=== PATIENT | male | born 1955 | race Caucasian/White ===

== ENCOUNTER 2018-06-15 17:15 | Observation (INO) | payer OTHER ==
--- OUTSIDE RECORDS SUMMARY | 2018-06-15 17:18 | XMS REPORT ---
:1955 [facility] [address] [place] [address] Care Team Providers Name Role Phone LETICIA FRANCO Unavailable Unavailable Payers Payer Name Policy Type Policy Number Effective Date Expiration Date Problems This patient has no known problems. Allergies, Adverse Reactions, Alerts Allergy Allergy Status Severity Reaction(s) Onset Inactive Treating Comments Name Type Date Date Clinician kodi Quinn NM 2016-04 00:00:0 0 Medications This patient has no known medications. Results Test Description Test Time Test Comments Text Results Atomic Results Result Comments - XR SPINE 1 V SPEC LEVEL 2018-05-21 11:56:00 Patient Name: NESTOR MAKI Unit No: [id number] EXAMS: CPT CODE: [id number] XR SPINE 1 V SPEC LEVEL 24344 2 LATERAL INTRAOPERATIVE VIEWS OF THE LUMBAR SPINE Film 1: Markers overlie the soft tissues posterior to T12-L1. Film 2: Probe was overlie the posterior elements at the T12-L1 level. at 1156 Reported and signed by: Efrain Calderón MD CC: Milton Cagle M.D. Technologist: Radames Patrick,RT(R). Transcribed D/ (5787) [id number] [facility] NAME: NESTOR MAKI [address] [place] [address] PHYS: Carlos A Rosas MD : 1955 AGE: 62 SEX: M [place], [place] [address] LOC: Y.320 A PHONE #: [phone] EXAM DATE: 05/20/2018 STATUS: REG [facility] [place] FAX #: [phone] RAD #: D/C DT PAGE 1 Signed Report Patient Name: NESTOR MAKI Unit No: [id number] EXAMS: CPT CODE: [id number] XR SPINE 1 V SPEC LEVEL 28502 <Continued> Orig Print D/T: S: 05/21/2018 (3009) [facility] NAME: NESTOR MAKI [address] [place] [address] PHYS: Carlos A Rosas MD : 1955 AGE: 62 SEX: M [place], [place] [address] LOC: Y.320 A PHONE #: [phone] EXAM DATE: 05/20/2018 STATUS: REG [facility] [place] FAX #: [phone] RAD #: D/C DT PAGE 2 Signed Report - XR SPINE 1 V SPEC LEVEL 2018-05-21 11:56:00 Patient Name: NESTOR MAKI Unit No: [id number] EXAMS: CPT CODE: [id number] XR SPINE 1 V SPEC LEVEL 63646 2 LATERAL INTRAOPERATIVE VIEWS OF THE LUMBAR SPINE Film 1: Markers overlie the soft tissues posterior to T12-L1. Film 2: Probe was overlie the posterior elements at the T12-L1 level. at 1156 Reported and signed by: Efrain Calderón MD CC: Milton Cagle M.D. Technologist: JORDON OROPEZA RT(R) Transcribed D/ (6402) DanielGVG [facility] NAME: NESTOR MAKI [address] [place] [address] PHYS: Carlos A Rosas MD : 1955 AGE: 62 SEX: M [place], [place] [address] LOC: Y.320 A PHONE #: [phone] EXAM DATE: 05/20/2018 STATUS: REG [facility] [place] FAX #: [phone] RAD #: D/C DT PAGE 1 Signed Report Patient Name: NESTOR MAKI Unit No: [id number] EXAMS: CPT CODE: [id number] XR SPINE 1 V SPEC LEVEL 15885 <Continued> Orig Print D/T: S: 05/21/2018 (1159) [facility] NAME: NESTOR MAKI [address] [facility] PHYS: Carlos A Rosas MD : 1955 AGE: 62 SEX: M [place], [place] [address] LOC: Y.320 A PHONE #: [phone] EXAM DATE: 05/20/2018 STATUS: REG [facility] [place] FAX #: [phone] RAD #: D/C DT PAGE 2 Signed Report BASIC METABOLIC PANEL 2018-05-21 06:52:00 Test Item Value Reference Range Comments SODIUM (test code=NA) 138 mmol/L 136-145 POTASSIUM (test code=K) 4.9 mmol/L 3.5-5.1 CHLORIDE (test code=CL) 102.0 mmol/L 98-107 CARBON DIOXIDE (test code=CO2) 26.3 mmol/L 21-32 GLUCOSE (test code=GLU) 160 mg/dL 70-110 BLOOD UREA NITROGEN (test 12 mg/dL 7-18 code=BUN) GLOMERULAR FILTRATION RATE (test 67.3 >60 Unit of measure: mL/min/1.73 code=GFR) q7Vbuzgrlto Range:Healthy Adults >90 mL/min/1.73 m2 For Chronic Kidney Disease: Stage II Mild Decrease in GFR 60-90 Stage III Moderate Decrease in GFR 30-59 Stage IV Severe Decrease in GFR 15-29 Stage V Kidney Failure <15 CREATININE (test code=CREAT) 1.11 mg/dL 0.55-1.30 CALCIUM (test code=CA) 8.7 mg/dL 8.2-10.1 URINALYSIS [id number] 17:54:00 Test Item Value Reference Range Comments UA COLOR (test code=COLU) YELLOW YELLOW UA APPEARANCE (test code=APPU) CLEAR CLEAR UA GLUCOSE DIPSTICK (test code=DGLUU) NEGATIVE NEGATIVE UA BILIRUBIN DIPSTICK (test code=BILU) NEG NEGATIVE UA KETONE DIPSTICK (test code=KETU) NEG mg/dL NEGATIVE UA SPECIFIC GRAVITY (test code=SGU) 1.010 1.003-1.035 UA BLOOD DIPSTICK (test code=SRIKANTH) NEG NEGATIVE UA PH DIPSTICK (test code=KESHAWN) 7.0 >6.5 UA PROTEIN DIPSTICK (test code=PROU) NEG mg/dL NEG UA UROBILINIOGEN DIPSTICK (test code=URO) 0.2 mg/dL NORM UA NITRITE DIPSTICK (test code=KERON) NEG NEG UA LEUKOCYTE ESTERASE DIPSTICK (test code=LEUU) NEG NEGATIVE UA WBC (test code=WBCU) 0-2 /HPF 0-2 UA RBC (test code=RBCU) 0-2 /HPF 0-2 UA EPITHELIAL CELLS (test code=EPIU) RARE /HPF 0-2 UA BACTERIA (test code=BACU) FEW /HPF NONE BASIC METABOLIC [id number] 15:08:00 Test Item Value Reference Range Comments SODIUM (test code=NA) 135 mmol/L 136-145 POTASSIUM (test code=K) 4.7 mmol/L 3.5-5.1 CHLORIDE (test code=CL) 97.0 mmol/L 98-107 CARBON DIOXIDE (test code=CO2) 25.8 mmol/L 21-32 GLUCOSE (test code=GLU) 144 mg/dL 70-110 BLOOD UREA NITROGEN (test 18 mg/dL 7-18 code=BUN) GLOMERULAR FILTRATION RATE 60.4 >60 Unit of measure: (test code=GFR) mL/min/1.73 q4Wicxhgbxt Range:Healthy Adults >90 mL/min/1.73 m2 For Chronic Kidney Disease: Stage II Mild Decrease in GFR 60-90 Stage III Moderate Decrease in GFR 30-59 Stage IV Severe Decrease in GFR 15-29 Stage V Kidney Failure <15 CREATININE (test code=CREAT) 1.22 mg/dL 0.55-1.30 CALCIUM (test code=CA) 9.3 mg/dL 8.2-10.1 CBC W/AUTO [id number] 12:20:00 Test Item Value Reference Range Comments WHITE BLOOD CELL (test code=WBC) 9.4 K/mm3 5.7-10.5 RED BLOOD CELL (test code=RBC) 5.33 M/mm3 4.2-5.4 HEMOGLOBIN (test code=HGB) 17.3 g/dL 12-16 HEMATOCRIT (test code=HCT) 50.0 % 37-47 MEAN CELL VOLUME (test code=MCV) 94 fL 80-98 MEAN CELL HGB (test code=MCH) 32.5 pg 27-34 MEAN CELL HGB CONCENTRATION (test code=MCHC) 34.6 g/dL 30.8-34.1 RED CELL DISTRIBUTION WIDTH (test code=RDW) 13.7 % 11-16 PLT (test code=PLT) 249 K/mm3 130-400 MEAN PLATELET VOLUME (test code=MPV) 11.1 fL 8.9-12.1 NEUTROPHIL % (test code=NT%) 63.7 % 45-70 LYMPHOCYTE % (test code=LY%) 23.4 % 20-40 MONOCYTE % (test code=MO%) 8.9 % 3-10 EOSINOPHIL % (test code=EO%) 2.1 % 1-5 BASOPHIL % (test code=BA%) 0.4 % 0.0-1.1 NEUTROPHIL # (test code=NT#) 6.00 K/mm3 2.00-7.50 LYMPHOCYTE # (test code=LY#) 2.20 K/mm3 1.50-4.00 MONOCYTE # (test code=MO#) 0.84 K/mm3 0.2-0.8 EOSINOPHIL # (test code=EO#) 0.20 K/mm3 0.04-0.4 BASOPHIL # (test code=BA#) 0.04 K/mm3 0.02-0.10 MANUAL DIFF REQUIRED (test code=MDIFF) NO MANUAL DIFF NUCLEATED RED BLOOD CELL (test code=NRBC) 0 % 0-0 - XR FLUORO FOR SPINE [id number] 12:26:00 Patient Name: NESTOR MAKI Unit No: [id number] EXAMS: CPT CODE: [id number] XR FLUORO FOR SPINE INJ 66767 LUMBAR TRANSFORAMINAL INJECTION REFERRING PHYSICIAN:Dr. Shalom Cagle M.D. PREOPERATIVE DIAGNOSIS: Degenerative Lumbar Disc Disease. POSTOPERATIVE DIAGNOSIS: Lumbar radiculopathy PROCEDURES PERFORMED 1. Fluoroscopically guided needle localization of the bilateral L4, bilateral L5 spinal nerve/nerves with transforaminal epidural steroid injection/injections. 2. Transforaminal epidurogram/epidurograms at bilateral L4, bilateral L5. FINDINGS: Poor filling all. Concordant provocation left L4 hip. Pain relief-100%. ANTIBIOTIC: CefazolinESTIMATED BLOOD LOSS : Minimal ANESTHESIA: (TIVA )Total intravenous anesthetic ( patientintolerant to sedatives and hypnotics) COMPLICATIONS : None DETAILSOF PROCEDURE: After obtaining stable vital signs, informed consent and IV access, with no known contraindications to proceeding, the patient was taken to the fluoroscopy suite and placed marcelino prone position with all extremities padded and appropriate monitors placed. A sterile prep and drape was performed over the lumbosacral spine. Using fluoroscopic visualization at each level the insertion site was marked for a paravertebral approach to the foramen. Using standard technique, a 25 gauge needle was advanced to the base of the pedicle. In AP view, final positioning was obtained outside the 6 on the clock position on the pedicle. Then, 1ml of Isovue-300 contrast was injected to produce the epidurograms. No paresthesias were elicited with needle insertion or injection and there were no signs of intravascular or intrathecal uptake. Then, with 1 ml of 4% lidocaine and 10 mg of triamcinolone was injected incrementally with frequent negative aspirations. There were no signs of intravascular or intrathecal uptake. Each subsequent level was done using the same technique and medications. The patient's vital signs remained stable. The patient was taken to the PACU in good condition. at 1226 Reportedand signed by: Justino Linares M.D. [facility] NAME: NESTOR MAKI [address] [facility] PHYS: DOCUD - Justino Linares MD [place], [place] [address] : 1955 AGE : 62 SEX: M LOC: MarvaRUDDY PHONE #: [phone] EXAM DATE: 05/03/2018 STATUS: REG [facility] [place] FAX #: [phone] RAD #: D/C DT PAGE 1 Signed Report (CONTINUED) Patient Name: NESTOR MAKI Unit No: [id number] EXAMS: CPT CODE: [id number] XR FLUORO FOR SPINE INJ 07195 <Continued> CC: Technologist: Gerri Tai(R) Transcribed D/ (1226) DanielUVD [facility] NAME: NESTOR MAKI [address] [facility] PHYS: Justino Heath MD [place] [address] : 1955 AGE: 62 SEX: M LOC: [place] PHONE #: [phone] EXAM DATE: 05/03/2018 STATUS: REG [facility] [place] FAX #: [phone] RAD #: D/C DT PAGE 2 Signed Report Patient Name: NESTOR MAKIit No: [id number] EXAMS: CPT CODE: [id number] XR FLUORO FOR SPINE INJ 43726 <Continued> Orig Print D/T: S: 05/03/2018 (1230) [facility] NAME: NESTOR MAKI [address] [facility] PHYS: Justino Heath MD [place] [address] : 1955 AGE:62 SEX: M LOC: [place] PHONE #: [phone] EXAM DATE: 05/03/2018 STATUS: REG [facility] [place] FAX #: [phone] RAD #: D/C DT PAGE 3 Signed ReportCHEST 2 VIEWS [place] [address] Patient Name: NESTOR MAKI MR #: [id number] : 1955 Age/Sex: 61/M Req #: [id number] Adm Physician: Ordered by: LETICIA FRANCO MD Report #: [id number] Location: [facility] Room/Bed: Procedure: [id number] DX/ CHEST 2 VIEWS Exam Date: 07/02/17 Exam Time: 1300 REPORT STATUS: Signed PROCEDURE: Frontal and lateral viewsof the chest. COMPARISON: None. INDICATIONS: COUGH FINDINGS: Lines/tubes: None. Lungs: The lungs are well inflated and clear. There is no evidence of pneumonia or pulmonary edema. Pleura: There is no pleural effusion or pneumothorax. Heart and mediastinum: The heart and the mediastinum are normal. Bones: No acute bony abnormality. Degenerativechanges of the thoracic spine. IMPRESSION: No acute radiographic abnormality. Dictated by: Jacquie Delaney M.D. on 07/02/2017 at 13:22 Electronically approved by: Jacquie Delaney M.D. on 07/02/2017 at 13:22 Dictated By: JACQUIE DELANEY MD 1322 COPY TO: LETICIA FRANCO MD
[2018-06-15 18:55] LABS: Absolute Lymphocytes (CBC) 2.8 K/uL (0.7-4.9); Absolute Monocytes 0.9 K/uL (0.1-1.3); Absolute Neutrophil 6.3 K/uL (1.8-8.0); Basophils % 0.2 % (0-1.3); Eosinophils % 2.6 % (0-4.4); Lymphocytes % 27.1 % (15.3-44.8); MPV 8.7 fL (7.6-11.3); Monocytes % 8.8 % (3.3-12.3); RBC Red Blood Cell Count 4.33 M/uL (4.33-5.43)
[2018-06-15 18:59] LABS: Protime INR 1.04
[2018-06-15] MEDS ORDERED: ASPIRIN 81 MG CHEWABLE TABLET ONE (19:04)
--- NOTE | 2018-06-15 19:08 | RAD REPORT ---
EXAM DESCRIPTION: RAD - Chest Single View - 06/15/2018 6:39 pm CLINICAL HISTORY: Chest pain, hypertension COMPARISON: None. TECHNIQUE: AP portable chest image was obtained 1837 hours . FINDINGS: Lungs are clear of a focal consolidation, mass or failure finding. Mild prominence of the interstitial markings probably baseline. Heart and vasculature are normal. No measurable pleural effu jossie and no pneumothorax. No acute bony abnormality seen. No acute aortic findings suspected. IMPRESSION: No acute cardiopulmonary process. Minimal prominence of the interstitial pattern is probably baseline.
[2018-06-15 19:22] LABS: ALT/SGPT 26 U/L (12-78); AST/SGOT 15 U/L (15-37); Albumin 3.4 g/dL (3.4-5.0); Alkaline Phosphatase 56 U/L (45-117); BUN Blood Urea Nitrogen 9 mg/dL (7-18); Bicarbonate 29 mmol/L (21-32); Bilirubin Direct 0.1 mg/dL (0-0.2); Bilirubin Total 0.3 mg/dL (0.2-1.0); Glucose Level 93 mg/dL (74-106); Magnesium 1.7 mg/dL (1.8-2.4); NT PRO-BNP 183 pg/mL (<125); Potassium 3.7 mmol/L (3.5-5.1); Protein, Total 6.7 g/dL (6.4-8.2); Sodium Level 135 mmol/L (136-145); Troponin (Emerg Dept Use Only) < 0.02 ng/mL (0.0-0.045)
[2018-06-15] MEDS ORDERED: ACETAMINOPHEN 500 MG TAB ONE (19:33)
--- NOTE | 2018-06-15 19:53 | EDPHYS ---
Physician Documentation [facility] Name: Patricio Proctor Age: 62 yrs Sex: Male : 1955 Arrival Date: 06/15/2018 Time: 17:16 Bed 20 Private MD: ED Physician Chetan Condon HPI: 06/15 18:48 This 62 yrs old Male presents to ER via Ambulatory with complaints of Chest cp Pressure, High Blood Pressure. 18:48 The patient or guardian reports chest pain that is located primarily in the anterior cp chest wall. Onset: today, now resolved [employer]. 18:48 The pain does not radiate. Associated signs and symptoms: Pertinent positives: cp headache, Pertinent negatives: abdominal pain, cough, diaphoresis, lower extremity pain, lower extremity swelling, shortness of breath. The chest pain is described as a pressure. Duration: The patient or guardian reports a single episode, that is now resolved. Historical: - Allergies: 17:46 Codeine; ch - Home Meds: 18:51 valsartan 160 mg oral tab 1 tab 2 times per day [Active]; eszopiclone 3 mg oral tab 1 jl7 tab once daily [Active]; propranolol 120 mg Oral Cs24 1 cap [Active]; folic acid 1 mg Oral tab 1 tab once daily [Active]; nifedipine 60 mg Oral TbER 1 tab once daily [Active]; hydrochlorothiazide 12.5 mg Oral tab 1 tab once daily [Active]; gabapentin 300 mg oral cap 1 cap 3 times per day [Active]; cyclobenzaprine 10 mg Oral tab 1 tab 3 times per day [Active]; Nitromist 400 mcg/spray translingual spra 1 spray [Active]; - PMHx: 17:46 Hypertension; heart arrythmia; ch - PSHx: 17:46 cardiac ablation; back sx; ch - Immunization history:: Adult Immunizations up to date. - Social history:: Smoking status: Patient uses tobacco products, smokes two packs cigarettes per day. Patient/guardian denies using alcohol, street drugs. - Ebola Screening: : Patient negative for fever greater than or equal to 101.5 degrees Fahrenheit, and additional compatible Ebola Virus Disease symptoms Patient denies exposure to infectious person Patient denies travel to an Ebola-affected area in the 21 days before illness onset No symptoms or risks identified at this time. ROS: 19:00 Constitutional: Negative for body aches, chills, fever, poor PO intake. cp 19:00 Eyes: Negative for injury, pain, redness, and discharge. cp 19:00 ENT: Negative for drainage from ear(s), ear pain, sore throat, difficulty swallowing, difficulty handling secretions. 19:00 Cardiovascular: Positive for chest pain, Negative for edema, palpitations. 19:00 Respiratory: Negative for cough, shortness of breath, wheezing. 19:00 Abdomen/GI: Negative for abdominal pain, nausea, vomiting, and diarrhea. 19:00 Back: Negative for radiated pain. 19:00 Neuro: Positive for headache, Negative for altered mental status, numbness, tingling, weakness. 19:00 All other systems are negative. Exam: 19:05 Constitutional: The patient appears in no acute distress, alert, awake, comfortable, cp non-diaphoretic, well developed, well nourished. 19:05 Head/Face: Normocephalic, atraumatic. cp 19:05 Eyes: Periorbital structures: appear normal, Conjunctiva: normal, no exudate, no injection, Sclera: no appreciated abnormality, Lids and lashes: appear normal, bilaterally. 19:05 ENT: External ear(s): are unremarkable, Ear canal(s): are normal, clear, TM's: dullness, bilaterally, Nose: is normal, Mouth: is normal, Posterior pharynx: is normal, airway is patent, no erythema, no exudate, Voice: is normal. 19:05 Neck: ROM/movement: is normal, is supple, without pain, no range of motions limitations, no nuchal rigidity. 19:05 Chest/axilla: Inspection: normal, Palpation: is normal, no crepitus, no tenderness. 19:05 Cardiovascular: Rate: normal, Rhythm: regular, Pulses: Pulses are 2+ in right radial artery and left radial artery. Edema: is not appreciated, JVD: is not appreciated. 19:05 Respiratory: the patient does not display signs of respiratory distress, Respirations: normal, no use of accessory muscles, no retractions, no splinting, no tachypnea, labored breathing, is not present, Breath sounds: are clear throughout, no decreased breath sounds, no stridor, no wheezing. 19:05 Abdomen/GI: Inspection: abdomen appears normal, Bowel sounds: active, all quadrants, Palpation: abdomen is soft and non-tender, in all quadrants, rebound tenderness, is not appreciated, involuntary guarding, is not appreciated. 19:05 Back: pain, is absent, ROM is normal. 19:05 Skin: cellulitis, is not appreciated, no rash present. 19:05 Neuro: Orientation: to person, place \T\ time. Mentation: is normal, Cerebellar function: is grossly normal, Motor: moves all fours, strength is normal, Sensation: is normal. Vital Signs: 17:46 BP 142 / 86; Pulse 54; Resp 18; Temp 98.2; Pulse Ox 99% on R/A; Pain 4/10; ch 18:31 BP 157 / 79; Pulse 51; Resp 16 S; Pulse Ox 99% on R/A; Pain 0/10; jl7 19:15 BP 162 / 77; Pulse 51; Resp 13; Pulse Ox 99% on R/A; Pain 4/10; ed1 20:11 Pain 2/10; ed1 20:54 BP 145 / 80; Pulse 61; Resp 17; Temp 97.9(O); Pulse Ox 98% on R/A; Pain 0/10; ed1 MDM: 18:34 Patient medically screened. cp 19:30 The patient was given aspirin in the Emergency Department. cp 19:30 Differential diagnosis: abnormal EKG, acute myocardial infarction, pleurisy, pneumonia, cp pneumothorax, pulmonary embolus, stable angina, thoracic aortic disection, unstable angina. Data reviewed: vital signs, nurses notes, lab test result(s), EKG, radiologic studies, plain films, and as a result, I will admit patient. Counseling: I had a detailed discussion with the patient and/or guardian regarding: the historical points, exam findings, and any diagnostic results supporting the discharge/admit diagnosis, the presence of at least one elevated blood pressure reading (>120/80) during this emergency department visit, lab results, radiology results. Physician consultation: Elijah Sullivan MD was called at 19:25, was contacted at 19:25, regarding admission, to the telemetry unit. 06/15 18:23 Order name: Basic Metabolic Panel; Complete Time: : ch 06/15 18:23 Order name: CBC with Diff; Complete Time: 19:22 ch 06/15 18:23 Order name: LFT's; Complete Time: 19:23 ch 06/15 18:23 Order name: Magnesium; Complete Time: 19:23 ch 06/15 18:23 Order name: NT PRO-BNP; Complete Time: 19:23 ch 06/15 18:23 Order name: PT-INR; Complete Time: 19:22 ch 06/15 17:50 Order name: EKG Electrocardiogram EDDC 06/15 18:23 Order name: Troponin (emerg Dept Use Only); Complete Time: 19:23 ch 06/15 18:23 Order name: XRAY Chest (1 view); Complete Time: 19:22 ch 06/15 18:23 Order name: EKG; Complete Time: 18:24 ch 06/15 18:23 Order name: Cardiac monitoring; Complete Time: 18:35 ch 06/15 18:23 Order name: EKG - Nurse/Tech; Complete Time: 18:35 ch 06/15 18:23 Order name: IV Saline Lock; Complete Time: 18:35 ch 06/15 18:23 Order name: Labs collected and sent; Complete Time: 18:35 ch 06/15 18:23 Order name: O2 Per Protocol; Complete Time: 18:35 ch 06/15 18:23 Order name: O2 Sat Monitoring; Complete Time: 18:35 ch Administered Medications: 19:00 Drug: Aspirin 162 mg Route: PO; jl7 20:10 Follow up: Response: No adverse reaction ed1 19:23 Drug: Tylenol 1000 mg Route: PO; ed1 20:11 Follow up: Pain 2/10 Adult; Response: No adverse reaction; Pain is decreased ed1 20:09 Drug: Magnesium Sulfate 1 grams Route: IVPB; Infused Over: 1 hrs; Site: left ed1 antecubital; 21:10 Follow up: Response: No adverse reaction; IV Status: Completed infusion; IV Intake: ed1 100ml Disposition: 06/15/18 19:52 Hospitalization ordered by Elijah Sullivan for Observation. Preliminary diagnosis is Chest pain, unspecified. - Bed requested for Telemetry/MedSurg (observation). - Status is Observation. fc - Condition is Stable. - Problem is new. - Symptoms have improved. UTI on Admission? No Addendum: 06/21/2018 07:18 Co-signature as Attending Physician, Chetan Condon MD. r n Signatures: Dispatcher [employer] EDMS Joceline Tabares, RN RN Hollye Wallace, RN RN Bambi Baig, RN JUAN CARLOS Chetan Condon MD MD rn Riggs, Erika RN RN ed1 Brant Syed PA PA Irma León, RN RN jl7 Corrections: (The following items were deleted from the chart) 06/15 20:13 19:52 Hospitalization Ordered by Elijah Sullivan MD for Observation. Preliminary diagnosis is Chest pain, unspecified. Bed requested for Telemetry/MedSurg (observation). Status is Observation. Condition is Stable. Problem is new. Symptoms have improved. UTI on Admission? No. cp 21:26 20:13 06/15/2018 19:52 Hospitalization Ordered by Elijah Sullivan MD for Observation. Preliminary diagnosis is Chest pain, unspecified. Bed requested for Telemetry/MedSurg (observation). Status is Observation. Condition is Stable. Problem is new. Symptoms have improved. UTI on Admission? No.
--- NOTE | 2018-06-15 19:53 | ER ---
Nurse's Notes [facility] Name: Patricio Proctor Age: 62 yrs Sex: Male : 1955 Arrival Date: 06/15/2018 Time: 17:16 Bed 20 Private MD: Diagnosis: Chest pain, unspecified Presentation: 06/15 17:41 Presenting complaint: Patient states: high blood pressure, 160's over 80's, and it kept ch going up, two hours later was I took some nitro but it 2012, droped my bp to 130's, but then it went back up. I have had a headache, pounding in my temples and chest pressure. Transition of care: patient was not received from another setting of care. Onset of symptoms was June 15, 2018 at 09:00. Risk Assessment: Do you want to hurt yourself or someone else? Patient reports no desire to harm self or others. Initial Sepsis Screen: Does the patient meet any 2 criteria? No. Patient's initial sepsis screen is negative. Does the patient have a suspected source of infection? No. Patient's initial sepsis screen is negative. Care prior to arrival: None. 17:41 Method Of Arrival: Ambulatory 17:41 Acuity: RISA 3 ch Triage Assessment: 17:46 General: Appears in no apparent distress. comfortable, Behavior is calm, cooperative, ch appropriate for age. Pain: Complains of pain in right yarsanism, left yarsanism, left base of the skull and right base of the skull Pain currently is 4 out of 10 on a pain scale. Cardiovascular: Heart tones S1 S2 present. Historical: - Allergies: 17:46 Codeine; - Home Meds: 18:51 valsartan 160 mg oral tab 1 tab 2 times per day [Active]; eszopiclone 3 mg oral tab 1 jl7 tab once daily [Active]; propranolol 120 mg Oral Cs24 1 cap [Active]; folic acid 1 mg Oral tab 1 tab once daily [Active]; nifedipine 60 mg Oral TbER 1 tab once daily [Active]; hydrochlorothiazide 12.5 mg Oral tab 1 tab once daily [Active]; gabapentin 300 mg oral cap 1 cap 3 times per day [Active]; cyclobenzaprine 10 mg Oral tab 1 tab 3 times per day [Active]; Nitromist 400 mcg/spray translingual spra 1 spray [Active]; - PMHx: 17:46 Hypertension; heart arrythmia; ch - PSHx: 17:46 cardiac ablation; back sx; ch - Immunization history:: Adult Immunizations up to date. - Social history:: Smoking status: Patient uses tobacco products, smokes two packs cigarettes per day. Patient/guardian denies using alcohol, street drugs. - Ebola Screening: : Patient negative for fever greater than or equal to 101.5 degrees Fahrenheit, and additional compatible Ebola Virus Disease symptoms Patient denies exposure to infectious person Patient denies travel to an Ebola-affected area in the 21 days before illness onset No symptoms or risks identified at this time. Screenin:31 Abuse screen: Denies threats or abuse. Denies injuries from another. Nutritional jl7 screening: No deficits noted. Tuberculosis screening: No symptoms or risk factors identified. Fall Risk IV access (20 points). Total Owens Fall Scale indicates No Risk (0-24 pts). Assessment: 18:31 General: Appears in no apparent distress. uncomfortable, Behavior is calm, cooperative, jl7 appropriate for age. Pain: Denies pain. Pain does not radiate. Pain began pt denies pain at this time. Neuro: Level of Consciousness is awake, alert, obeys commands, Oriented to person, place, time, situation. Cardiovascular: Heart tones S1 S2 present Patient's skin is warm and dry. Respiratory: Airway is patent Respiratory effort is even, unlabored, Respiratory pattern is regular, symmetrical, Breath sounds are clear bilaterally. Denies shortness of breath. GI: No signs and/or symptoms were reported involving the gastrointestinal system. : No signs and/or symptoms were reported regarding the genitourinary system. EENT: No signs and/or symptoms were reported regarding the EENT system. Derm: Skin is pink, warm \\T\\ dry. Musculoskeletal: No signs and/or symptoms reported regarding the musculoskeletal system. 19:15 Reassessment: Patient appears in no apparent distress at this time. Patient and/or ed1 family updated on plan of care and expected duration. Pain level reassessed. Patient is alert, oriented x 3, equal unlabored respirations, skin warm/dry/pink. Pt states "My temples are still throbbing some like my blood pressure is still high." Patient states symptoms have improved. 20:04 Reassessment: Pt requested d/c of IV in right a/c. ed1 Vital Signs: 17:46 BP 142 / 86; Pulse 54; Resp 18; Temp 98.2; Pulse Ox 99% on R/A; Pain 4/10; ch 18:31 BP 157 / 79; Pulse 51; Resp 16 S; Pulse Ox 99% on R/A; Pain 0/10; jl7 19:15 BP 162 / 77; Pulse 51; Resp 13; Pulse Ox 99% on R/A; Pain 4/10; ed1 20:11 Pain 2/10; ed1 20:54 BP 145 / 80; Pulse 61; Resp 17; Temp 97.9(O); Pulse Ox 98% on R/A; Pain 0/10; ed1 ED Course: 17:16 Patient arrived in ED. as 17:45 Triage completed. ch 17:46 Arm band placed on left wrist. Patient placed in waiting room. EKG completed in triage. ch Results shown to MD. 18:22 Irma Melara, JUAN CARLOS is Primary Nurse. jl7 18:31 Patient has correct armband on for positive identification. Placed in gown. Bed in low jl7 position. Call light in reach. Side rails up X2. blood tester fowl on. Pulse ox on. NIBP on. 18:31 Patient maintains SpO2 saturation greater than 95% on room air. jl7 18:34 Brant Syed PA is PHCP. cp 18:34 Chetan Condon MD is Attending Physician. cp 18:36 Initial lab(s) drawn, by ED staff, sent to lab. Inserted saline lock: 18 gauge in right jl7 antecubital area, using aseptic technique. Blood collected. inserted by JUAN CARLOS Car. 18:39 XRAY Chest (1 view) In Process Unspecified. EDMS 19:51 Elijah Sullivan MD is Hospitalizing Provider. cp 20:04 Inserted saline lock: 20 gauge in left antecubital area, using aseptic technique. IV ed1 discontinued, intact, bleeding controlled, No redness/swelling at site. Pressure dressing applied. 20:05 Primary Nurse role handed off by Irma Melara, JUAN CARLOS ed1 20:05 Maribel Valdivia RN is Primary Nurse. ed1 21:23 No provider procedures requiring assistance completed. Patient admitted, IV remains in ed1 place. intact, No redness/swelling at site. Administered Medications: 19:00 Drug: Aspirin 162 mg Route: PO; jl7 20:10 Follow up: Response: No adverse reaction ed1 19:23 Drug: Tylenol 1000 mg Route: PO; ed1 20:11 Follow up: Pain 2/10 Adult; Response: No adverse reaction; Pain is decreased ed1 20:09 Drug: Magnesium Sulfate 1 grams Route: IVPB; Infused Over: 1 hrs; Site: left ed1 antecubital; 21:10 Follow up: Response: No adverse reaction; IV Status: Completed infusion; IV Intake: ed1 100ml Intake: 21:10 IV: 100ml; Total: 100ml. ed1 Outcome: 19:52 Decision to Hospitalize by Provider. cp 21:23 Admitted to Med/surg accompanied by tech, via wheelchair, room 231, with chart, Report ed1 called to JUAN CARLOS Giraldo 21:23 Condition: stable 21:23 Discharge instructions given to patient, Instructed on the need for admit, Demonstrated understanding of instructions. 21:26 Patient left the ED. fc Signatures: Dispatcher [employer] EDMS Joceline Tabares, RN RN Bambi Baig RN RN fc Hilary Peres Erika RN RN ed1 Brant Syed PA PA cp Leal, Jahala, RN RN jl7 Corrections: (The following items were deleted from the chart) 21:23 20:10 Response: No adverse reaction; IV Status: Completed infusion; IV Intake: 100ml ed1ed1
--- NOTE | 2018-06-15 19:55 | P.HP ---
Certification for Inpatient Patient admitted to: Observation With expected LOS: <2 Midnights Practitioner: I am a practitioner with admitting privileges, knowledge of patient current condition, hospital course, and medical plan of care. Services: Services provided to patient in accordance with Admission requirements found in Title 42 Section 412.3 of the Code of Federal Regulations Patient History Date of Service: 06/15/18 Reason for admission: chest pain History of Present Illness: Mr Proctor is a 62 years old male with history of HTN, tobacco abuse (mostly vape since 1 month ago) 45 pack year, under testosterone shot therapy, who notice this morning that his blood pressure has been more elevated than usual, about 170's/80's. He takes nifedipine, Valsaltarn and propanolol, and despite to take his medication, BP remaim elevated. He denied any weakness, tingling or numbness. However, around 4:00 PM start having pressure like chest pain, substernal, radiated to his neck, about 5/10 of intensity, never had this symptom in the past. He denied SOB, nausea, or diaphoresis associated. He took nitro which help to decrease his BP, but did not improved chest pain. It finally subsided after 1 hour. At my encounter the patient was chest pain free. EKG shows no acute ST-T abnormalities, initial trop I negative. Home medications list reviewed: Yes - Past Medical/Surgical History -: HTN -: tobacco abuse Past Surgical History: Reviewed- Non-Contributory - Family History Family History: Reviewed- Non-Contributory - Social History Smoking Status: Current every day smoker (vape since 1 month ago, previously smoke 1.5 PPD x 30 years) Counseled patient to stop smoking for: less than 10 minutes CD- Drugs: No Place of Residence: Home Review of Systems 10-point ROS is otherwise unremarkable Physical Examination - Physical Exam General: Alert, In no apparent distress HEENT: Atraumatic, PERRLA, Mucous membr. moist/pink, EOMI, Sclerae nonicteric Neck: Supple, 2+ carotid pulse no bruit, No LAD, Without JVD or thyroid abnormality Respiratory: Clear to auscultation bilaterally, Normal air movement Cardiovascular: Regular rate/rhythm, Normal S1 S2 Gastrointestinal: Normal bowel sounds, No tenderness Musculoskeletal: No tenderness Integumentary: No rashes Neurological: Normal gait, Normal speech, Normal strength at 5/5 x4 extr, Normal tone, Normal affect Lymphatics: No axilla or inguinal lymphadenopathy - Studies Laboratory Data (last 24 hrs) 06/15/18 18:17: PT 12.2, INR 1.04 06/15/18 18:17: WBC 10.3, Hgb 14.0, Hct 41.0, Plt Count 281 06/15/18 18:17: Sodium 135 L, Potassium 3.7, BUN 9, Creatinine 1.16, Glucose 93 , Magnesium 1.7 L, Total Bilirubin 0.3, AST 15, ALT 26, Alkaline Phosphatase 56 Assessment and Plan - Problems (Diagnosis) (1) HTN (hypertension) Current Visit: Yes Status: Acute Qualifiers: Hypertension type: essential hypertension Qualified Code(s): I10 - Essential (primary) hypertension (2) Chest pain Current Visit: Yes Status: Acute Qualifiers: Chest pain type: precordial pain Qualified Code(s): R07.2 - Precordial pain (3) Tobacco abuse Current Visit: Yes Status: Acute (4) Testosterone deficiency Current Visit: Yes Status: Acute - Plan Will admit the patient due to chest pain, for serial cardiac enzymes and EKG. Will order ECHO and cardiology consult. - Advance Directives Does patient have a Living Will: No Does patient have a Durable POA for Healthcare: No - Code Status/Comfort Care Code Status Assessed: Yes Code Status: Full Code
[2018-06-15] MEDS ORDERED: MAGNESIUM SULFATE 1 gm IVPB 1 GM/100 ML BAG IV ONE (19:57)
[2018-06-15] MEDS ORDERED: HYDRALAZINE HCL 20 MG/ML VIAL IV PRN (21:37)
[2018-06-15 22:14] LABS: Absolute Lymphocytes (CBC) 2.4 K/uL (0.7-4.9); Absolute Monocytes 0.6 K/uL (0.1-1.3); Absolute Neutrophil 5.2 K/uL (1.8-8.0); Basophils % 0.8 % (0-1.3); Eosinophils % 3.2 % (0-4.4); Hematocrit 40.4 % (39.6-49.0); MPV 8.7 fL (7.6-11.3); Monocytes % 6.7 % (3.3-12.3)
[2018-06-15 22:26] LABS: BUN Blood Urea Nitrogen 8 mg/dL (7-18); Bicarbonate 31 mmol/L (21-32); Glucose Level 135 mg/dL (74-106); Potassium 3.5 mmol/L (3.5-5.1); Sodium Level 136 mmol/L (136-145); Troponin I < 0.02 ng/mL (0.0-0.045)
[2018-06-16] MEDS ORDERED: ESZOPICLONE 1 MG TAB PO SCH
[2018-06-16] MEDS: CYCLOBENZAPRINE 10 MG TAB PO SCH ×3 (00:20→13:00)
[2018-06-16] MEDS: GABAPENTIN 300 MG CAP PO SCH ×2 (00:21→13:00)
[2018-06-16 05:36] LABS: Urine Appearance CLEAR; Urine Bilirubin NEGATIVE (NEG); Urine Blood NEGATIVE (NEG); Urine Color YELLOW; Urine Glucose NEGATIVE (NEG); Urine Protein NEGATIVE (NEG); Urine Specific Gravity <=1.005 (1.005-1.030); Urine Urobilinogen 0.2 mg/dL (0.2-1.0); Urine pH 7.5 (5.0-7.0)
[2018-06-16 05:47] LABS: Urine Microscopic Reflex NO UMIC
[2018-06-16] MEDS ORDERED: PNEUMOCOCCAL VACCINE 0.5 ML IMVAC ONE (06:00)
[2018-06-16] MEDS ORDERED: ENOXAPARIN 40 MG/0.4 ML SQ SCH (09:00)
[2018-06-16] MEDS ORDERED: PROPRANOLOL HCL 60 MG SA CAP PO SCH (09:00)
[2018-06-16] MEDS ORDERED: VALSARTAN 80 MG TAB PO SCH (09:00)
[2018-06-16] MEDS ORDERED: ASPIRIN EC 81 MG TAB PO SCH (09:00)
[2018-06-16] MEDS ORDERED: FOLIC ACID 1 MG TABLET PO SCH (09:00)
[2018-06-16] MEDS ORDERED: NIFEDIPINE XL 60 MG TABLET PO SCH (09:00)
[2018-06-16] MEDS ORDERED: REGADENOSON 0.4 MG/5 ML SYR IV ONE (10:19)
--- NOTE | 2018-06-16 11:54 | TREADPHA ---
DX: CHEST PAIN Date of Study: 06/16/18 Ht: 5 8 Wt: 197 lb 8 oz Consulting Physician: SOLEDAD MEDICATIONS: ASPIRIN, FLEXERIL, LOVENOX, LUNESTA, NEURONTIN, APRESOLINE, PROCARDIA XL, DIOVAN. HISTORY: 62 YEAR OLD MALE WITH COMPLAINTS OF CHEST PAIN. H ISTORY: HYPERTENSION, HEART ARRHYTHMIA, CARDIAC ABLATION, BACK SURGERY, FORMER SMOKER, QUIT ONE MONTH AGO (1.5 PACKS DAILY). DRINKS-DAILY, MIXED BEER AND ALCOHOL. PHYSICIAL EXAMINATION: RESTING B.P.: 141/85 RESTING H.R.: 66 RESTING EKG: NORMAL. PROTOCOL: LEXISCAN EXERCISE TIME: 3:30 B.P. AT PEAK STRESS: 152/82 IMPRESSION: LEXISCAN INJECTED, FOLLOWED BY CARDIOLITE PER PROTOCOL, SEE NUCLEAR MEDICINE REPORT. NO SUPRA VENTRICULAR TACHYCARDIA, NO VENTRICULAR TACHYCARDIA, NO PREMATURE ATRIAL COMPLEXES, AND NO PREMATURE VENTRICULAR COMPLEXES. PATIENT REPORTED NO CHEST PAIN OR TIGHTNESS THROUGHOUT THE PROCEDURE, OR IN RECOVERY.
--- NOTE | 2018-06-16 12:14 | RAD REPORT ---
EXAM DESCRIPTION: NM - Rest Stress Cardiac Imaging - 06/16/2018 12:04 pm CLINICAL HISTORY: CP Chest pain. COMPARISON: No comparisons TECHNIQUE: The patient was administered approximately 10mCi of Tc 99m Sestamibi prior to resting SPE CT imaging of the heart. The patient was then administered approximately 30 mCi of Tc 99m Sestamibi f ollowing exercise or pharmacologic stress. Multiplanar SPECT images were reviewed. FINDINGS: No stress induced ischemic defect is seen to suggest stress induced ischemia. No fixed def ect is seen to suggest hibernating myocardium or scarred myocardium. The end diastolic volume is 132 ml, the end systolic volume is 47 ml, and the ejection fraction is 64 %. IMPRESSION: No stress induced ischemia.
--- NOTE | 2018-06-16 12:38 | EKG ---
Test Date: 2018-06-15 Test Time: 17:41:32 Fire Safety Inspector: DAKSHA MEASUREMENT RESULTS: Intervals: Rate: 53 [place]: 142 QRSD: 110 QT: 418 QTc: 392 [place]: P: 55 [place]: 142 QRS: 72 T: 47 INTERPRETIVE STATEMENTS: Sinus bradycardia Otherwise normal ECG Compared to ECG 11/21/2006 14:02:00 Intraventricular conduction delay no longer present Electronically Signed On 06-16-18 12:36:42 CONTINUOUS WASHER OPERATOR by Dylan Stauffer
--- NOTE | 2018-06-16 12:47 | P.DS ---
Admission Date: 06/15/18 Discharge Date: 06/16/18 Primary Care Provider: Dr. Mayer(Yazidism); Cardiology-Dr. Mcfadden Disposition: ROUTINE DISCHARGE Discharge Condition: GOOD Reason for Admission: chest pain Consultations: Cardiology-Dr. Stauffer Procedures: Cardiac Stress test: COMPARISON: No comparisons TECHNIQUE: The patient was administered approximately 10mCi of Tc 99m Sestamibi prior to resting SPECT imaging of the heart. The patient was then administered approximately 30 mCi of Tc 99m Sestamibi following exercise or pharmacologic stress. Multiplanar SPECT images were reviewed. FINDINGS: No stress induced ischemic defect is seen to suggest stress induced ischemia. No fixed defect is seen to suggest hibernating myocardium or scarred myocardium. The end diastolic volume is 132 ml, the end systolic volume is 47 ml, and the ejection fraction is 64 %. IMPRESSION: No stress induced ischemia Medical Problem list: Chest pain HTN Tobacco abuse Low Testosterone GERD Chronic pain Brief History of Present Illness: 62-year-old male presented to emergency room with chest pain. Patient with history of hypertension and tobacco abuse. Patient was admitted for further evaluation. Hospital Course: Patient presented with chest pain. Patient with history of hypertension, tobacco abuse. Cardiac enzymes unremarkable. Patient seen and evaluated by Cardiology. Cardiac stress test performed. No stress-induced ischemia noted. At discharge patient may continue with aspirin 81 mg daily. Patient may follow up with his cloth mercerizer back tender in [place] to further monitor and address. Patient with hypertension. Patient will continue with his medications- Nifedipine 60 mg daily, Inderal 150 mg 1 pill twice daily, valsartan 160 mg 1 pill twice daily, and hydrochlorothiazide 12.5 mg daily. Recommend to maintain blood pressures less 150/80. Further adjustment can be done by his cloth mercerizer back tender. Patient may have underlying GERD. Recommend to continue with Pepcid OTC 20 mg 1 pill twice daily. Patient may benefit with GI consultation as an outpatient. Tobacco cessation education will be provided at discharge. Patient with chronic pain. Patient will continue with his chronic pain medication and muscle relaxer. Further adjustment can be done by his pain specialist. Vital Signs/Physical Exam: Temp Pulse Resp BP Pulse Ox 97.8 F 57 20 131/66 95 06/16/18 08:00 06/16/18 09:49 06/16/18 08:00 06/16/18 09:49 06/16/18 08:00 General: Alert, In no apparent distress, Oriented x3, Cooperative HEENT: Atraumatic Neck: Supple Respiratory: Clear to auscultation bilaterally, Normal air movement Cardiovascular: Normal pulses, Regular rate/rhythm Gastrointestinal: Normal bowel sounds, Soft and benign, Non-distended, No tenderness, No masses, No rebound, No guarding Musculoskeletal: No erythema, No tenderness, No warmth Integumentary: No tenderness/swelling, No erythema, No warmth, No cyanosis Neurological: Normal speech, Normal strength at 5/5 x4 extr, Normal tone, Normal affect Laboratory Data at Discharge: WBC 8.5 K/uL (4.3-10.9) D 06/15/18 21:53 Hgb 13.9 g/dL (13.6-17.9) 06/15/18 21:53 Hct 40.4 % (39.6-49.0) 06/15/18 21:53 Plt Count 258 K/uL (152-406) 06/15/18 21:53 PT 12.2 SECONDS (9.5-12.5) 06/15/18 18:17 INR 1.04 06/15/18 18:17 Sodium 136 mmol/L (136-145) 06/15/18 21:53 Potassium 3.5 mmol/L (3.5-5.1) 06/15/18 21:53 BUN 8 mg/dL (7-18) 06/15/18 21:53 Creatinine 1.13 mg/dL (0.55-1.3) 06/15/18 21:53 Glucose 135 mg/dL (74-106) H 06/15/18 21:53 Magnesium 1.7 mg/dL (1.8-2.4) L 06/15/18 18:17 Total Bilirubin 0.3 mg/dL (0.2-1.0) 06/15/18 18:17 AST 15 U/L (15-37) 06/15/18 18:17 ALT 26 U/L (12-78) 06/15/18 18:17 Alkaline Phosphatase 56 U/L (45-117) 06/15/18 18:17 Troponin I < 0.02 ng/mL (0.0-0.045) 06/16/18 05:58 Triglycerides 169 mg/dL (<150) H 06/16/18 05:58 Cholesterol 164 mg/dL (<200) 06/16/18 05:58 HDL Cholesterol 28 mg/dL (40-60) L 06/16/18 05:58 Cholesterol/HDL Ratio 5.86 06/16/18 05:58 Home Medications: Cyclobenzaprine [Flexeril*] 1 tab PO TID 06/15/18 Eszopiclone [Lunesta] 1 tab PO BEDTIME 06/15/18 Folic Acid 1 tab PO DAILY 06/15/18 Gabapentin 1 cap PO TID 06/15/18 Nifedipine [Nifedipine ER] 1 tab PO DAILY 06/15/18 Propranolol HCl [Inderal Xl] 1 cap PO BID 06/15/18 Valsartan [Diovan*] 1 tab PO BID 06/15/18 hydroCHLOROthiazide [Hydrochlorothiazide*] 1 tab PO DAILY 06/15/18 Aspirin [Aspirin EC 81 MG] 81 mg PO DAILY #90 tablet. 06/16/18 New Medications: Aspirin [Aspirin EC 81 MG] 81 mg PO DAILY #90 tablet. Patient Discharge Instructions: 1. Recommend to follow up with his PCP within 1 week. 2. Patient presented with chest pain. Patient with history of hypertension, tobacco abuse. Cardiac enzymes unremarkable. Patient seen and evaluated by Cardiology. Cardiac stress test performed. No stress-induced ischemia noted. At discharge patient may continue with aspirin 81 mg daily. Patient may follow up with his cloth mercerizer back tender in [place] to further monitor and address. 3. Patient with hypertension. Patient will continue with his medications-Nifedipine 60 mg daily, Inderal 150 mg 1 pill twice daily, valsartan 160 mg 1 pill twice daily, and hydrochlorothiazide 12.5 mg daily. Recommend to maintain blood pressures less 150/80. Further adjustment can be done by his cloth mercerizer back tender. 4. Patient may have underlying GERD. Recommend to continue with Pepcid OTC 20 mg 1 pill twice daily. Patient may benefit with GI consultation as an outpatient. 5. Tobacco cessation education will be provided at discharge. 6. Patient with chronic pain. Patient will continue with his chronic pain medication and muscle relaxer. Further adjustment can be done by his pain specialist. Diet: AHA Activity: Ad pao Time spent managing pt's care (in minutes): 55
--- NOTE | 2018-06-16 13:58 | ECHO ---
HEIGHT: 5 ft 8 in WEIGHT: 197 lb 8 oz DATE OF STUDY: REFER DR: Elijah Crenshaw MD 2-DIMENSIONAL: YES M.MODE: YES DOPPLER: YES COLOR FLOW: YES TDS: NO PORTABLE: NO DEFINITY: NO BUBBLE STUDY: NO DIAGNOSIS: CHEST PAIN CARDIAC HISTORY: CATHERIZATION: NO SURGERY: NO PROSTHETIC VALVE: NO PACEMAKER: NO MEASUREMENTS (cm) DIASTOLIC (NORMALS) SYSTOLIC (NORMALS) IVSd 1.2 (0.6-1.2) LA Diam 3.7 (1.9-4.0) LVEF 75% LVIDd 4.8 (3.5-5.7) LVIDs 2.7 (2.0-3.5) %FS 44% LVPWd 1.0 (0.6-1.2) Ao Diam 3.2 (2.0-3.7) 2 DIMENSIONAL ASSESSMENT: RIGHT ATRIUM: NORMAL LEFT ATRIUM: NORMAL RIGHT VENTRICLE: NORMAL LEFT VENTRICLE: NORMAL TRICUSPID VALVE: NORMAL MITRAL VALVE: NORMAL PULMONIC VALVE: NORMAL AORTIC VALVE: NORMAL PERICARDIAL EFFUSION: NONE AORTIC ROOT: NORMAL LEFT VENTRICULAR WALL MOTION: NORMAL. DOPPLER/COLOR FLOW: PHYSIOLOGIC TRICUSPID REGURGITATION. NORMAL RIGHT VENTRICULAR SYSTOLIC PRESSURE. COMMENTS: NORMAL 2D ECHO WITH DOPPLER. TECHNOLOGIST: JAI STEPHEN
--- NOTE | 2018-06-16 15:23 | CON ---
A 62-year-old man. History Of Present Illness: Mr. Proctor started to notice his blood pressure going up, when it went u p to about 180/100, he noticed his chest also felt tight, so he came to the hospital. Presently, his blood pressure is good. He has a history of AFib and underwent an AFib ablation about 2011. He robles s not remember the doctors who did it. He is presently under the care of Dr. Moore, a Manufacturing Teacher, who practices at [facility] I believe, and he has had a stress test within the last year that was no rmal. He has never had coronary heart disease. He was a cigarette smoker but quit 1 month ago. He has underlying hypertension, a remote history of AFib. Outpatient Medications: Hydrochlorothiazide, Lunesta, nifedipine 60, folic acid, valsartan 160, prop ranolol 120 b.i.d., Flexeril and gabapentin. Physical Examination: General: He is 5 feet 8 inches, 197 pounds. Vital signs: Blood pressure 131/66, heart rate 56. HEENT: Normal. Lungs: Clear. Cardiac exam: Normal. Abdomen: Soft. Extremities: Normal. An EKG shows sinus rhythm, no infarction, injury or ischemia. Laboratory Exam: Normal complete blood count. Normal troponins. GFR 36, creatinine 1.13, blood sug ar 135, total cholesterol 164, HDL 28. Impression: The patient should have a stress test and echocardiogram. If any thing is abnormal, we will discuss it with him, but he probably will return to Dr. Moore, if he needs heart catheterization . In the meantime, the medicines he is on now seemed to be doing very well, controlling his blood pr essure, and I think what they have done is basically continued his outpatient medications. I have ad ded hydralazine to be used as needed, but he has not actually had any doses of hydralazine given, so we will see what the stress test and echocardiogram show and proceed after that with further decision valentina HAWTHORNE/FRANKLYN Voice ID: [id number] Report ID: [id number]
== END 2018-06-16 15:55 | disposition home or self-care (01) ==
LOC: ER 17:15 → ERHOLD 19:57 → 2ND 21:17
PROVIDERS: ADMIT Internal Medicine; ATTEND Internal Medicine
DX: R07.9 Chest pain, unspecified (principal); I10 Essential (primary) hypertension; F17.210 Nicotine dependence, cigarettes, uncomplicated; K21.9 Gastro-esophageal reflux disease without esophagitis; G89.29 Other chronic pain; Z23 Encounter for immunization; F17.290 Nicotine dependence, other tobacco product, uncomplicated
CPT/HCPCS: 36415; 71045; 78452; 80048; 80061; 80076; 81003; 83735; 83880; 84484; 85025; 85610; 90670; 93005; 93017; 93306; 96365; 99285; A9500; G0009; G0378; J1650; J2785; J3475